=== PATIENT | male | born 1945 | race Caucasian/White ===

== ENCOUNTER 2018-12-04 16:24 | Emergency (ER) | payer MEDICARE, MEDICAID ==
[~2018-12-04] VITALS: Ht 165.1 cm; Wt 86.2 kg
--- NOTE | 2018-12-04 16:30 | NUR ---
CAME IN FOR RLQ ABDOMINAL PAIN, DYSURIA, NIGHT TIME FEVER X 5 DAYS, TO ER BED 10, HOOKED TO MONITOR, CHANGED TO GOWN, PROVIDED W WARM BLANKET, AWAITING MD TAVARES.
--- NOTE | 2018-12-04 16:42 | NUR ---
DR NG AT BEDSIDE
--- NOTE | 2018-12-04 16:45 | NUR ---
BLOOD DRAWN AND SENT TO LAB, URINE SAMPLE COLLECTED AND SENT TO LAB
[2018-12-04] MEDS ORDERED: MORPHINE SULFATE INJ 4 MG/ML DISP.SYRIN ONE (16:58)
[2018-12-04] MEDS ORDERED: ONDANSETRON HCL/PF 4 MG/2 ML VIAL ONE (16:58)
[2018-12-04] MEDS ORDERED: MORPHINE SULFATE INJ 2 MG/ML DISP.SYRIN IV ONE (17:00)
[2018-12-04] MEDS ORDERED: IV NS 0.9% 1,000 ML BAG IV ONE (17:00)
[2018-12-04] MEDS ORDERED: ONDANSETRON HCL/PF 4 MG/2 ML VIAL IVP ONE (17:00)
[2018-12-04 17:05] LABS: BASOPHILS # (AUTO) 0.1 /CMM (0.0-0.2); BASOPHILS % (AUTO) 1.7 % (0.0-2.0); EOSINOPHILS % (AUTO) 1.5 % (0.0-6.0); HEMATOCRIT 39 % (39-51); HEMOGLOBIN 13.3 g/dL (13.5-17.5); LYMPHOCYTES # (AUTO) 1.5 /CMM (0.8-4.8); LYMPHOCYTES % (AUTO) 16.9 % (20.0-44.0); MEAN CORPUSCULAR HGB CONC 34 g/dl (31.0-36.0); MEAN CORPUSCULAR VOLUME 94 fL (80-96); MONOCYTES # (AUTO) 1.1 /CMM (0.1-1.30); MONOCYTES % (AUTO) 12.8 % (2.0-12.0); NEUTROPHILS # (AUTO) 5.8 /CMM (1.8-8.9); NEUTROPHILS % (AUTO) 67.1 % (43.0-81.0); PLATELET COUNT (AUTO) 241 /CMM (150-450); RED BLOOD CELL COUNT(AUTO) 4.17 MIL/uL (4.5-6.0); WHITE BLOOD COUNT (AUTO) 8.6 K/uL (4.3-11.0)
[2018-12-04 17:09] LABS: APPEARANCE,URINE Clear (CLEAR); BILIRUBIN,URINE SMALL (NEGATIVE); BLOOD, URINE Trace-lysed Ery/uL (NEGATIVE); COLOR,URINE Yellow (YELLOW); KETONES,URINE Negative (NEGATIVE); LEUKOCYTE ESTERASE ,URINE Trace (NEGATIVE); NITRITE, URINE Negative (NEGATIVE); PH,URINE 5.5 (5.0-8.0); PROTEIN,URINE 30 mg/dl (NEGATIVE); UGLUCOSE Negative (NEGATIVE); UROBILINOGEN,URINE 0.2 EU/dL (0.2)
[2018-12-04 17:13] LABS: CALCIUM, SERUM 9.4 mg/dL (8.5-10.1); CARBON DIOXIDE 30 mmol/L (21-32); CHLORIDE 104 mmol/L (98-107); CREATININE 1.1 mg/dL (0.6-1.3); GLUCOSE 200 mg/dL (74-106); POTASSIUM 4.2 mmol/L (3.5-5.1); SODIUM SERUM 139 mmol/L (136-145); UREA NITROGEN, BLOOD 25 mg/dL (7-18)
[2018-12-04 17:19] LABS: ALANINE AMINOTRANSFERASE 49 U/L (12-78); ALBUMIN 3.4 g/dL (3.4-5.0); ALKALINE PHOSPHATASE 60 U/L (46-116); ASPARTATE AMINOTRANSFERASE 38 U/L (15-37); BILIRUBIN,DIRECT 0.1 mg/dL (0.0-0.2); BILIRUBIN,TOTAL 0.2 mg/dL (0.2-1.0); LIPASE 100 U/L (73-393); TOTAL PROTEIN, SERUM 7.4 g/dL (6.4-8.2)
[2018-12-04 17:35] LABS: BACTERIA,URINE Few /HPF (None Seen); SQUAMOUS EPITHELIAL CELL,UR Few /HPF (None Seen)
[2018-12-04] MEDS ORDERED: CEFTRIAXONE 1GM BAG (ER ONLY) 1 GM/50 ML PIGGYBACK IV ONE (18:30)
[2018-12-04] MEDS ORDERED: CEFTRIAXONE 1GM BAG (ER ONLY) 50 ML IV ONE (18:31)
[2018-12-04 18:49] VITALS: BP 123/65
--- NOTE | 2018-12-04 18:49 | NUR ---
IV removed. Catheter intact and site benign. Pressure and 4x4 applied to site. No bleeding noted.Patient discharged to home in stable condition. Written and verbal after care instructions given. Patient verbalizes understanding of instruction.
== END 2018-12-04 18:50 | disposition home or self-care (01) ==
LOC: ER 16:24
DX: N12 Tubulo-interstitial nephritis, not specified as acute or chronic (principal); R42 Dizziness and giddiness; I10 Essential (primary) hypertension; E11.9 Type 2 diabetes mellitus without complications; F17.200 Nicotine dependence, unspecified, uncomplicated; Z85.51 Personal history of malignant neoplasm of bladder; Z98.890 Other specified postprocedural states
CPT/HCPCS: 36415; 71045; 74176; 80048; 80076; 81001; 83605; 83690; 85025; 85730; 87040 ×2; 93005; 96361; 96365; 96375; 99284; J0696; J2270; J2405; J7030; 81000-TC

== ENCOUNTER 2020-07-27 02:06 | Emergency (ER) | payer MEDICARE, MEDICAID ==
[~2020-07-27] VITALS: Ht 172.7 cm; Wt 72.6 kg
--- NOTE | 2020-07-27 02:24 | NUR ---
PT AAOX4. 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 MD AT BEDSIDE FOR EAL. AWAITING ORDERS.
[2020-07-27] MEDS ORDERED: HYDROCODONE/APAP 5/325MG TABLET PO ONE (03:00)
[2020-07-27] MEDS ORDERED: HYDROCODONE/APAP 5/325MG TABLET ONE (03:06)
--- NOTE | 2020-07-27 03:13 | NUR ---
Patient discharged to home in stable condition. Written and verbal after care instructions given. Patient verbalizes understanding of instruction.Pt ambulatory with a steady gait. Pt instructed not to drive, left with family member
[2020-07-27 03:14] VITALS: BP 131/79
== END 2020-07-27 03:15 | disposition home or self-care (01) ==
LOC: ER 02:06
DX: S40.012A Contusion of left shoulder, initial encounter (principal); S20.212A Contusion of left front wall of thorax, initial encounter; F17.210 Nicotine dependence, cigarettes, uncomplicated; I10 Essential (primary) hypertension; E11.9 Type 2 diabetes mellitus without complications; Z85.51 Personal history of malignant neoplasm of bladder; W01.198A Fall on same level from slipping, tripping and stumbling with subsequent striking against other object, initial encounter; Y93.89 Activity, other specified; Y92.89 Other specified places as the place of occurrence of the external cause; Y99.8 Other external cause status
CPT/HCPCS: 71045-TC; 73030-TC

== ENCOUNTER 2021-06-14 22:40 | Inpatient (IN) | payer MEDICARE, OTHER ==
[~2021-06-14] VITALS: Ht 172.7 cm; Wt 74.5 kg
--- NOTE | 2021-06-14 23:00 | NUR ---
[facility]YD VIERA FOR A STENT PLACEMENT SURGURY TOMORROW PER DR. NAVARRO. PATIENT IS ALERT AND OREINTED X3. AMBULATORY WITH A STEADY GAIT AND PRESENTS WITH NON LABORED SPONTANEOUS BREATHING.
--- NOTE | 2021-06-14 23:04 | NUR ---
BLOOD TAKEN AND SENT TO LAB
--- NOTE | 2021-06-14 23:05 | NUR ---
EMT @ BEDSIDE FOR EKG
--- NOTE | 2021-06-14 23:10 | NUR ---
COVID SWAB DONE AND SENT TO LAB
[2021-06-14 23:15] LABS: BASOPHILS # (AUTO) 0.1 K/uL (0.0-0.2); BASOPHILS % (AUTO) 0.7 % (0.0-2.0); EOSINOPHILS % (AUTO) 2.5 % (0.0-6.0); HEMATOCRIT 38 % (39-51); HEMOGLOBIN 12.8 g/dL (13.5-17.5); LYMPHOCYTES # (AUTO) 3.2 K/uL (0.8-4.8); LYMPHOCYTES % (AUTO) 36.1 % (20.0-44.0); MEAN CORPUSCULAR HGB CONC 34 g/dl (31.0-36.0); MEAN CORPUSCULAR VOLUME 96 fL (80-96); MONOCYTES # (AUTO) 0.8 K/uL (0.1-1.30); MONOCYTES % (AUTO) 8.4 % (2.0-12.0); NEUTROPHILS # (AUTO) 4.7 K/uL (1.8-8.9); NEUTROPHILS % (AUTO) 52.3 % (43.0-81.0); PLATELET COUNT (AUTO) 293 K/uL (150-450); RED BLOOD CELL COUNT(AUTO) 3.98 MIL/uL (4.5-6.0)
[2021-06-14 23:30] LABS: CALCIUM, SERUM 9.3 mg/dL (8.5-10.1); CREATININE 1.1 mg/dL (0.6-1.3); POTASSIUM 4.7 mmol/L (3.5-5.1)
--- NOTE | 2021-06-14 23:52 | NUR ---
PATIENT ALERT AND ORIENTED, COMFORTABLY WATCHING TV.
[2021-06-15] VITALS (10 sets, daily range): BP systolic 112–134; BP diastolic 49–95
--- NOTE | 2021-06-15 00:01 | NUR ---
TELE 311-2
--- NOTE | 2021-06-15 00:46 | NUR ---
REPORT GIVEN TO MARY TAVERA
--- NOTE | 2021-06-15 00:47 | NUR ---
TRANSFERRING PER [facility]S
--- NOTE | 2021-06-15 00:47 | NUR ---
TRANSFERRING PT TO 312-2
[2021-06-15] MEDS ORDERED: Z GUARD REMEDY 2 OZ OINT TP PRN (01:30)
[2021-06-15] MEDS ORDERED: MAG HYDROX/AL HYDROX/SIMETH 30 ML UDC PO PRN (01:30)
[2021-06-15] MEDS ORDERED: ACETAMINOPHEN 325 MG TABLET PO PRN (01:30)
[2021-06-15] MEDS ORDERED: MAGNESIUM HYDROXIDE 30 ML UDC PO PRN (01:30)
[2021-06-15] MEDS ORDERED: ONDANSETRON HCL/PF 4 MG/2 ML VIAL IVP PRN (01:30)
[2021-06-15] MEDS ORDERED: ZOLPIDEM TARTRATE 5 MG TABLET PO PRN (01:30)
--- NOTE | 2021-06-15 02:00 | NUR ---
Patient arrived to unit at 0135 accompanied by ER staff. Pt is A&Ox4, [place] speaking only. Use of switchboard inspector ID#[id number] for admission and consents. Neurocheck wnl, pupils equal and reactive to light. can use all extremities evenly. Ambulatory -pt reports sometimes using a walker but appears steady. heart rate and rhythm regular. lung sounds clear though patient does have mild non-productive intermittent cough. bowel sounds active. Abdomen soft and non-tender. No edema. Skin intact. Patient reports smoking 2 packs/day. No allergies, wants to be full code. Refuses all vaccines. Oriented patient to unit protocol, bed controls, call light, and remote. Tele monitor applied. Will continue to monitor.
[2021-06-15] MEDS ORDERED: IV SET PRIMARY PUMP SET 1 EA INFUS.SET MC ONE (06:20)
[2021-06-15] MEDS ORDERED: IV NS 0.9% 1,000 ML ONE (06:20)
[2021-06-15] MEDS ORDERED: MIDAZOLAM HCL 2 MG/2ML VIAL ONE (06:20)
[2021-06-15] MEDS ORDERED: FENTANYL PF 100MCG/2ML AMPUL ONE (06:20)
[2021-06-15] MEDS ORDERED: VERAPAMIL HCL IV 5 MG/2 ML VIAL ONE (06:21)
[2021-06-15] MEDS ORDERED: NITROGLYCERIN IN 5 % DEXTROSE 250 ML IV ONE (06:22)
[2021-06-15 06:27] LABS: BASOPHILS # (AUTO) 0.1 K/uL (0.0-0.2); BASOPHILS % (AUTO) 0.8 % (0.0-2.0); EOSINOPHILS % (AUTO) 2.8 % (0.0-6.0); HEMATOCRIT 36 % (39-51); HEMOGLOBIN 12.1 g/dL (13.5-17.5); LYMPHOCYTES # (AUTO) 3.5 K/uL (0.8-4.8); LYMPHOCYTES % (AUTO) 40.9 % (20.0-44.0); MEAN CORPUSCULAR HGB CONC 33 g/dl (31.0-36.0); MEAN CORPUSCULAR VOLUME 96 fL (80-96); MONOCYTES # (AUTO) 0.7 K/uL (0.1-1.30); MONOCYTES % (AUTO) 7.8 % (2.0-12.0); NEUTROPHILS # (AUTO) 4.1 K/uL (1.8-8.9); NEUTROPHILS % (AUTO) 47.7 % (43.0-81.0); PLATELET COUNT (AUTO) 264 K/uL (150-450); RED BLOOD CELL COUNT(AUTO) 3.79 MIL/uL (4.5-6.0); WHITE BLOOD COUNT (AUTO) 8.5 K/uL (4.3-11.0)
[2021-06-15] MEDS ORDERED: IODIXANOL 150 ML IV ONE (06:33)
[2021-06-15 06:52] LABS: CALCIUM, SERUM 8.9 mg/dL (8.5-10.1); MAGNESIUM 2.3 mg/dL (1.8-2.4); PHOSPHORUS 3.7 mg/dL (2.5-4.9); POTASSIUM 4.3 mmol/L (3.5-5.1)
[2021-06-15] MEDS ORDERED: LIDOCAINE HCL/MPF 1% 30 ML VIAL IJ ONE (06:57)
[2021-06-15] MEDS ORDERED: ATEN50TA PO (07:00)
[2021-06-15] MEDS ORDERED: FLUT1DIS5 INH (07:00)
[2021-06-15] MEDS ORDERED: OLME20TA23 PO (07:00)
[2021-06-15] MEDS ORDERED: TAMS-12 PO (07:00)
[2021-06-15] MEDS ORDERED: SIMV-46 PO (07:00)
[2021-06-15] MEDS ORDERED: ESCI10TA PO (07:00)
[2021-06-15] MEDS ORDERED: MONT10TA22 PO (07:00)
[2021-06-15] MEDS ORDERED: GLIM2TAB31 PO (07:00)
[2021-06-15] MEDS ORDERED: METF-441 PO (07:00)
[2021-06-15] MEDS ORDERED: FENO134C PO (07:00)
[2021-06-15] MEDS ORDERED: HEPARIN SODIUM, PORCINE 5000 UNITS/1 ML VIAL ONE (07:11)
[2021-06-15] MEDS ORDERED: HEPARIN SODIUM, PORCINE 1,000 UNIT/ML VIAL ONE ×2 (07:11→07:34)
--- NOTE | 2021-06-15 07:44 | NUR ---
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
[2021-06-15] MEDS ORDERED: IODIXANOL 320MG/ML 50 ML IV ONE (07:49)
[2021-06-15] MEDS ORDERED: TICAGRELOR 90 MG TABLET PO ONE (07:50)
[2021-06-15] MEDS ORDERED: BIVALIRUDIN 250 MG/VIAL IV ONE (07:51)
--- NOTE | 2021-06-15 10:23 | NUR ---
NURSE NOTE PATIENT ANXIOUS AND AGITATED. PULL OFF TR BAND. NO BLEEDING WAS NOTED. DRESSING APPLY. WILL CONTINUE TO MONITOR.
[2021-06-15] MEDS ORDERED: TICA90TA PO (13:48)
--- NOTE | 2021-06-15 15:09 | NUR ---
NURSE NOTE PATIENT WAS DISCHARGED. PATIENT IN STABLE CONDITION. AMBULATE AND DRESS WITH OWN STRENGTH. ALL BELONGING ACCOUNTED FOR. VITAL SIGNS AT TIME OF DISCHARGE: TEMP: 98.7, HR: 66, O2 SAT 97%, BP: 124/52, RR: 18. Addendum: 06/15/21 at 1531 by JENNY ELDER RN NO BLEEDING AT PROCEDURE SITE
[2021-06-15] MEDS ORDERED: TICAGRELOR 90 MG TABLET PO SCH (21:00)
[2021-06-15] MEDS ORDERED: SIMVASTATIN 20 MG TABLET PO SCH (22:00)
[2021-06-16] MEDS ORDERED: ASPIRIN 81 MG TAB.CHEW PO SCH (09:00)
== END 2021-06-15 15:32 | disposition home or self-care (01) | DRG 247 ==
LOC: ER 22:48 → TELE 06-15 00:27 → ICU 06-15 09:00
PROVIDERS: ADMIT Registered Nurse; ATTEND Registered Nurse
PROC: 027034Z Dilation of Coronary Artery, One Artery with Drug-eluting Intraluminal Device, Percutaneous Approach (ICD-10-PCS; principal; 2021-06-15)
PROC: 4A023N7 Measurement of Cardiac Sampling and Pressure, Left Heart, Percutaneous Approach (ICD-10-PCS; 2021-06-15)
PROC: B211YZZ Fluoroscopy of Multiple Coronary Arteries using Other Contrast (ICD-10-PCS; 2021-06-15)
DX: I25.110 Atherosclerotic heart disease of native coronary artery with unstable angina pectoris (principal); E11.9 Type 2 diabetes mellitus without complications; I10 Essential (primary) hypertension; Z85.51 Personal history of malignant neoplasm of bladder; Z20.822 Contact with and (suspected) exposure to COVID-19; E78.5 Hyperlipidemia, unspecified; Z79.82 Long term (current) use of aspirin; F17.200 Nicotine dependence, unspecified, uncomplicated; Z79.84 Long term (current) use of oral hypoglycemic drugs; Z79.51 Long term (current) use of inhaled steroids; Z79.899 Other long term (current) drug therapy
CPT/HCPCS: 36415; 71045-TC; 80048-TC; 80061-TC; 83735-TC; 84100-TC; 84484-TC; 85025-TC; 85730-TC; 87081-TC; 92980; A6253; C1725; C1887; C9803; G0378; G0500; J1644; J2250; J3010; J3490; J7030; Q9967

== ENCOUNTER 2021-08-30 12:22 | Outpatient (CLI) | payer MEDICARE, MEDICAID ==
[~2021-08-30 12:22] MED LIST: ATEN50TA PO; ESCI10TA PO; FENO134C PO; FLUT1DIS5 INH; GLIM2TAB31 PO; METF-441 PO; MONT10TA22 PO; OLME20TA23 PO; SIMV-46 PO; TAMS-12 PO; TICA90TA PO
[2021-08-30] MEDS ORDERED: IV NS 0.9% 250 ML IV ONE (13:03)
[2021-08-30] MEDS ORDERED: IOHEXOL-300 100 ML VIAL IV ONE (13:04)
[2021-08-30] MEDS ORDERED: CT SWABBABLE VALVE TRANS SET 1 EA INFUS.SET MC ONE (13:04)
[2021-08-30 14:21] LABS: BASOPHILS # (AUTO) 0.1 K/uL (0.0-0.2); BASOPHILS % (AUTO) 0.6 % (0.0-2.0); EOSINOPHILS % (AUTO) 2.1 % (0.0-6.0); HEMATOCRIT 39 % (39-51); HEMOGLOBIN 13.2 g/dL (13.5-17.5); LYMPHOCYTES # (AUTO) 2.4 K/uL (0.8-4.8); MEAN CORPUSCULAR HGB CONC 34 g/dl (31.0-36.0); MEAN CORPUSCULAR VOLUME 95 fL (80-96); MONOCYTES # (AUTO) 0.7 K/uL (0.1-1.30); MONOCYTES % (AUTO) 7.3 % (2.0-12.0); NEUTROPHILS # (AUTO) 6.5 K/uL (1.8-8.9); PLATELET COUNT (AUTO) 246 K/uL (150-450); RED BLOOD CELL COUNT(AUTO) 4.06 MIL/uL (4.5-6.0); WHITE BLOOD COUNT (AUTO) 9.9 K/uL (4.3-11.0)
[2021-08-30 14:34] LABS: CALCIUM, SERUM 9.3 mg/dL (8.5-10.1); CARBON DIOXIDE 26 mmol/L (21-32); CHLORIDE 103 mmol/L (98-107); CREATININE 0.9 mg/dL (0.6-1.3); GLUCOSE 150 mg/dL (74-106); POTASSIUM 4.5 mmol/L (3.5-5.1); SODIUM SERUM 137 mmol/L (136-145); UREA NITROGEN, BLOOD 23 mg/dL (7-18)
== END 2021-08-30 23:59 | disposition home or self-care (01) ==
LOC: CT 12:22
PROVIDERS: ATTEND Internal Medicine Interventional Cardiology
DX: I25.10 Atherosclerotic heart disease of native coronary artery without angina pectoris (principal); I11.9 Hypertensive heart disease without heart failure; I26.99 Other pulmonary embolism without acute cor pulmonale; J84.10 Pulmonary fibrosis, unspecified; I70.0 Atherosclerosis of aorta; M47.814 Spondylosis without myelopathy or radiculopathy, thoracic region
CPT/HCPCS: 36415; 71275; 80048; 84484; 85025; J7050; Q9967